=== PATIENT | female | born 1990 | race African-American/Black ===

== ENCOUNTER 2021-07-02 20:56 | Emergency (ER) | payer SELFPAY ==
[~2021-07-02] VITALS: Ht 170.2 cm; Wt 102.0 kg
[2021-07-02 21:24] VITALS: BP 130/65
== END 2021-07-02 23:10 | disposition left against medical advice (07) ==
LOC: ER 20:56
DX: Z53.21 Procedure and treatment not carried out due to patient leaving prior to being seen by health care provider (principal)